=== PATIENT | female | born 1955 | race Caucasian/White ===

== ENCOUNTER → 2017-05-11 | Outpatient (CLI) | payer BC, OTHER ==
[~2017-05-11] MED LIST: CALC1CAP8 PO; CHOL10003 PO; ESTR0.5T PO; FENO160T PO; NIAC250T7 PO; OMEG-172 PO; OXYC1TAB7 PO; SUMA100T3 PO
[2017-05-11 13:42] LABS: CULTURE INDICATED? NO; MICROSCOPIC NOT IND
[2017-05-11 13:47] LABS: BASOPHILS # (AUTO) 0.01 x10^3/uL (0-0.1); BASOPHILS % (AUTO) 0 % (0-1); EOSINOPHILS # (AUTO) 0.01 x10^3/uL (0-0.4); EOSINOPHILS % (AUTO) 0 % (1-7); LYMPHOCYTES # (AUTO) 0.72 x10^3/uL (1-3.4); LYMPHOCYTES % (AUTO) 18 % (22-44); MD NO; MEAN CORPUSCULAR HEMOGLOBIN 31.6 pg (27.0-34.8); MEAN CORPUSCULAR HGB CONC 33.8 g/dL (32.4-35.8); MEAN CORPUSCULAR VOLUME 93.5 fL (80-100); MEAN PLATELET VOLUME 7.2 fL (7.4-10.4); MONOCYTES # (AUTO) 0.23 x10^3/uL (0.2-0.8); MONOCYTES % (AUTO) 6 % (2-9); NEUTROPHILS % (AUTO) 76 % (42-75); PLATELET COUNT 201 x10^3/uL (130-400); RED BLOOD COUNT 4.67 x10^6/uL (3.82-5.3); RED CELL DISTRIBUTION WIDTH 12.5 % (9.6-15.2)
[2017-05-11 13:51] LABS: ANION GAP 7 mmol/L (5-15); CALCIUM 9.4 mg/dL (8.5-10.1); CHLORIDE 106 mmol/L (98-107); CREATININE 0.78 mg/dL (0.55-1.02)
== END | disposition home or self-care (01) ==
LOC: STAR 12:18
PROVIDERS: ATTEND Orthopaedic Surgery
DX: Z01.818 Encounter for other preprocedural examination (principal); M17.11 Unilateral primary osteoarthritis, right knee; M81.0 Age-related osteoporosis without current pathological fracture; I25.10 Atherosclerotic heart disease of native coronary artery without angina pectoris; J43.9 Emphysema, unspecified; E11.9 Type 2 diabetes mellitus without complications; K21.9 Gastro-esophageal reflux disease without esophagitis
CPT/HCPCS: 36415; 80048; 81003; 85025; 87081; 87147; 93005

== ENCOUNTER 2017-05-25 05:47 | Inpatient (IN) | payer OTHER ==
[~2017-05-25] VITALS: Ht 170.2 cm; Wt 76.4 kg
[2017-05-25] MEDS ORDERED: LACTATED RINGERS 1,000 ML IV SCH (07:24)
[2017-05-25] MEDS ORDERED: FAMOTIDINE 20 MG TABLET PO ONE (07:30)
[2017-05-25] MEDS ORDERED: GABAPENTIN 300 MG CAPSULE PO ONE (07:30)
[2017-05-25] MEDS ORDERED: METOCLOPRAMIDE 10MG TABLET PO ONE (07:30)
[2017-05-25] MEDS ORDERED: ACETAMINOPHEN 500 MG TABLET PO ONE (07:30)
[2017-05-25] MEDS ORDERED: DIAZEPAM 5 MG TABLET PO ONE (07:30)
[2017-05-25 08:00] VITALS: BP 145/82
[2017-05-25] MEDS ORDERED: TRANEXAMIC ACID 100 MG/ML, 10ML ONE (08:12)
[2017-05-25] MEDS ORDERED: ROPIvacaine/PF 0.2%, 20 ML ONE (08:12)
[2017-05-25] MEDS ORDERED: SODIUM CHLORIDE 0.9% 100 ML ONE (08:12)
[2017-05-25] MEDS ORDERED: KETOROLAC 60 MG/2 ML ONE (08:12)
[2017-05-25] MEDS ORDERED: EPINEPHRINE 1 MG/ML, 1ML ONE (08:12)
[2017-05-25] MEDS ORDERED: KETAMINE 10 MG/ML, 20ML IV ONE (09:00)
[2017-05-25] MEDS ORDERED: FENTANYL PF 100 MCG/2ML ONE ×3 (09:52→13:09)
[2017-05-25] MEDS ORDERED: MIDAZOLAM 1 MG/ML, 2ML ONE (09:52)
[2017-05-25] MEDS ORDERED: BISACODYL 10 MG SUPP PR PRN (11:00)
[2017-05-25] MEDS ORDERED: LORazepam 1MG TABLET PO PRN (11:00)
[2017-05-25] MEDS ORDERED: PROMETHAZINE 25 MG/ML, 1ML IM PRN (11:00)
[2017-05-25] MEDS ORDERED: MAGNESIUM HYDROXIDE 8%, 30ML UDC PO PRN (11:00)
[2017-05-25] MEDS ORDERED: ONDANSETRON 4 MG TABLET PO PRN (11:00)
[2017-05-25] MEDS ORDERED: ONDANSETRON 2MG/ML, 2ML IV PRN (11:00)
[2017-05-25] MEDS ORDERED: SENNA/DOCUSATE TABLET PO PRN (11:00)
[2017-05-25] MEDS ORDERED: ALUMINUM/MAG/SIMETHICONE 30 ML UDC PO PRN (11:00)
[2017-05-25] MEDS ORDERED: ZOLPIDEM 5MG TABLET PO PRN (11:00)
[2017-05-25] MEDS ORDERED: PROMETHAZINE 12.5 MG SUPP PR PRN (11:00)
[2017-05-25] MEDS ORDERED: DIPHENHYDRAMINE 25 MG CAPSULE PO PRN (11:00)
[2017-05-25] MEDS ORDERED: ONDANSETRON 2MG/ML, 2ML ONE (11:05)
[2017-05-25] MEDS ORDERED: SUCCINYLCHOLINE 20 MG/ML, 10ML ONE (11:05)
[2017-05-25] MEDS ORDERED: PROPOFOL 10 MG/ML, 20ML ONE (11:05)
[2017-05-25] MEDS ORDERED: ROCURONIUM 10 MG/ML,10ML ONE (11:05)
[2017-05-25] MEDS ORDERED: DEXAMETHASONE 4 MG/ML, 1ML ONE (11:05)
[2017-05-25] MEDS ORDERED: CEFAZOLIN 1,000 MG ONE (11:05)
[2017-05-25] MEDS ORDERED: OXYcodone 5 MG/5 ML ORAL.SOL UDC PO PRN (12:00)
[2017-05-25] MEDS: TAMSULOSIN 0.4 MG CAP.ER.24H PO SCH (12:00)
[2017-05-25] MEDS ORDERED: DIAZEPAM 5 MG/ML, 2ML IVPush PRN (12:00)
[2017-05-25] MEDS ORDERED: PROMETHAZINE 25 MG/ML, 1ML IV PRN (12:00)
[2017-05-25] MEDS ORDERED: MEPERIDINE/PF 25MG/0.5ML IVPush PRN (12:00)
[2017-05-25] MEDS ORDERED: TRANEXAMIC ACID 1,000 MG in SODIUM CHLORIDE 0.9% 100 ML IVPB ONE (12:45)
[2017-05-25] MEDS ORDERED: OXYcodone 5 MG/5 ML ORAL.SOL UDC ONE (13:09)
[2017-05-25] MEDS: FENTANYL PF 100 MCG/2ML IV PRN ×2 (13:13→13:19)
[2017-05-25] MEDS ORDERED: MORPHINE SULFATE 4 MG/ML, 1ML ONE ×2 (13:26→13:46)
[2017-05-25] MEDS: morphine SULFATE 10 MG/ML, 1ML IV PRN ×2 (13:30→13:49)
[2017-05-25] MEDS: ACETAMINOPHEN 500 MG TABLET PO SCH ×2 (15:30→23:00)
[2017-05-25] MEDS: D5%-0.45% NACL 1,000 ML IV SCH (15:30)
[2017-05-25] MEDS ORDERED: SUMATRIPTAN 100 MG TABLET PO PRN (15:30)
[2017-05-25] MEDS: OXYcodone IR 5MG TABLET PO PRN (15:40)
[2017-05-25 16:00] VITALS: BP 125/73
[2017-05-25] MEDS: ASPIRIN 81 MG TABLET EC PO SCH (17:51)
[2017-05-25] MEDS: CEFAZOLIN PMX 1GM/50ML 50 ML IVPB SCH (19:26)
[2017-05-25 20:15] VITALS: BP 129/70
[2017-05-25] MEDS: DOCUSATE 100 MG CAPSULE PO SCH (20:27)
[2017-05-25] MEDS: HYDROmorphone 2 MG/ML, 1ML IV PRN ×2 (20:27→22:40)
[2017-05-26 01:02] VITALS: BP 119/73
[2017-05-26] MEDS: OXYcodone IR 5MG TABLET PO PRN ×3 (01:37→10:32)
[2017-05-26] MEDS: HYDROmorphone 2 MG/ML, 1ML IV PRN (01:43)
[2017-05-26] MEDS: CEFAZOLIN PMX 1GM/50ML 50 ML IVPB SCH (03:44)
[2017-05-26] MEDS: D5%-0.45% NACL 1,000 ML IV SCH (03:45)
[2017-05-26] MEDS ORDERED: DEXAMETHASONE 4 MG/ML, 1ML IVPush SCH (06:00)
[2017-05-26] MEDS: ASPIRIN 81 MG TABLET EC PO SCH (06:19)
[2017-05-26] MEDS: ACETAMINOPHEN 500 MG TABLET PO SCH (07:00)
[2017-05-26 07:27] VITALS: BP 152/69
[2017-05-26] MEDS: DOCUSATE 100 MG CAPSULE PO SCH (08:42)
[2017-05-26] MEDS: TAMSULOSIN 0.4 MG CAP.ER.24H PO SCH (08:46)
[2017-05-26] MEDS ORDERED: ESTRADIOL 0.5 MG TABLET PO SCH (09:00)
[2017-05-26] MEDS ORDERED: OMEGA-3/FISH OIL CAPSULE PO SCH (09:00)
[2017-05-26] MEDS ORDERED: CHOLECALCIFEROL 1,000 UNIT TABLET PO SCH (09:00)
[2017-05-26] MEDS ORDERED: NIACIN 250 MG CAPSULE.ER PO SCH (09:00)
[2017-05-26] MEDS ORDERED: FENOFIBRATE 145 MG TABLET PO SCH (09:00)
[2017-05-26] MEDS ORDERED: CALCIUM/VITAMIN D3 250-125 TABLET PO SCH (09:00)
[2017-05-26] MEDS ORDERED: ASPI-621 PO (10:45)
[2017-05-26] MEDS ORDERED: ACET500T71 PO (10:45)
[2017-05-26] MEDS ORDERED: KETOROLAC 30 MG/1 ML IV SCH (11:00)
[2017-05-26 11:30] VITALS: BP 133/72
[2017-05-26] MEDS ORDERED: OXYC10TA6 PO (11:33)
[2017-05-26] MEDS ORDERED: OXYC5CAP2 PO (11:36)
== END 2017-05-26 12:00 | disposition home or self-care (01) | DRG 470 ==
LOC: OUT 05:47 → ORIP 10:40 → 4NOR 14:35 → DCLOUNGE 05-26 11:41
PROVIDERS: ADMIT Orthopaedic Surgery; ATTEND Orthopaedic Surgery
PROC: 0SRC069 Replacement of Right Knee Joint with Oxidized Zirconium on Polyethylene Synthetic Substitute, Cemented, Open Approach (ICD-10-PCS; principal; 2017-05-25 11:15)
DX: M17.11 Unilateral primary osteoarthritis, right knee (principal); G43.909 Migraine, unspecified, not intractable, without status migrainosus; Z79.82 Long term (current) use of aspirin
CPT/HCPCS: 36415; 85018; C1713; J0171; J0690; J1100; J1170; J1885; J2250; J2405; J2704; J2795; J3010; J3360; C1776; J0330; J2270; J7120

== ENCOUNTER 2019-12-12 14:31 | Emergency (ER) | payer BC, MEDICARE, OTHER ==
[~2019-12-12] VITALS: Ht 170.2 cm; Wt 69.3 kg
[~2019-12-12 14:31] MED LIST changes: +ACET500T64 PO; +ASPI81TA45 PO; +OXYC10TA6 PO; +OXYC5CAP2 PO
[2019-12-12 15:03] VITALS: BP 132/86
--- NOTE | 2019-12-12 15:03 | NUR ---
PT C/O SOB, HEADACHE, WEAKNESS, AND COUGH X 1 WEEK. PT DENIES FEVER, CHEST PAIN, OR GI UPSET. PT UNSURE IF ANY CONTACT WITH ANYONE WITH COVID 19.
[2019-12-12 15:35] LABS: BASOPHILS % (AUTO) 0 % (0-1); EOSINOPHILS % (AUTO) 0 % (1-7); LYMPHOCYTES % (AUTO) 29 % (22-44); MEAN CORPUSCULAR HEMOGLOBIN 30.9 pg (27.0-34.8); MEAN CORPUSCULAR HGB CONC 33.3 g/dL (32.4-35.8); MEAN PLATELET VOLUME 7.4 fL (7.4-10.4); MONOCYTES % (AUTO) 6 % (2-9); NEUTROPHILS % (AUTO) 64 % (42-75); PLATELET COUNT 196 x10^3/uL (130-400); RED BLOOD COUNT 4.46 x10^6/uL (3.82-5.3); RED CELL DISTRIBUTION WIDTH 12.9 % (9.6-15.2)
[2019-12-12 15:36] LABS: MD NO
[2019-12-12 15:44] LABS: ALANINE AMINOTRANSFERASE 20 U/L (12-78); ALBUMIN 3.6 g/dL (3.4-5.0); ANION GAP 10 mmol/L (5-15); CALCIUM 9.1 mg/dL (8.5-10.1); CHLORIDE 108 mmol/L (98-107)
[2019-12-12 15:51] LABS: ALKALINE PHOSPHATASE 63 U/L (45-117); BILIRUBIN,TOTAL 0.4 mg/dL (0.2-1.0); CREATININE 0.86 mg/dL (0.55-1.02); TOTAL PROTEIN 7.4 g/dL (6.4-8.2)
[2019-12-12] MEDS ORDERED: IBUPROFEN 200 MG TABLET PO ONE (16:30)
== END 2019-12-12 17:05 | disposition home or self-care (01) ==
LOC: ED 14:58
DX: R06.00 Dyspnea, unspecified (principal); Z20.828 Contact with and (suspected) exposure to other viral communicable diseases; M79.10 Myalgia, unspecified site; R51.9 Headache, unspecified; R94.31 Abnormal electrocardiogram [ECG] [EKG]
CPT/HCPCS: 36415; 80053; 82728; 83605; 83615; 85025; 86140; 87040; 87635; 93005; 99284